=== PATIENT | male | born 1980 | race Caucasian/White ===

== ENCOUNTER 2023-05-26 08:45 | Outpatient (CLI) | payer OTHER ==
--- NOTE | 2023-05-26 09:59 | CT Report ---
PROCEDURE: SINUS SCREENING WO INDICATIONS: FACIAL PAIN TECHNIQUE: Noncontrast 3.0 mm axial images acquired from the frontal sinuses to the mid-sella, with coronal and sagittal reformats. For radiation dose reduction, the following was used: automated exposure control , adjustment of mA and/or kV according to patient size. COMPARISON: None. FINDINGS: Image quality: Excellent. Maxillary Sinuses: No bony remodeling or destruction. There is a mild mucous retention cyst along th e inferior aspect of the right maxillary sinus. Minimal mucosal thickening can be seen involving both inferior maxillary sinuses. Ethmoid Air Cells: No bony remodeling or destruction. Sinuses are clear. Sphenoid Sinuses: No bony remodeling or destruction. Sinuses are clear. Frontal Sinuses: No bony remodeling or destruction. Sinuses are clear. Ostiomeatal Complexes: The ostiomeatal complexes are patent, yet they are constitutionally narrowed, with bilateral Tank cells. Miscellaneous: Visualized intra-orbital contents are normal. No joseph bullosa. There is mild lef tward nasal septal deviation, with a leftward directed bony nasal septal spur. IMPRESSION: Mild focal maxillary sinus disease. The ostiomeatal complexes are patent, yet they are constitutionally narrowed, with bilateral Tank c ells. Mild leftward nasal septal deviation, with a leftward directed bony septal spur. Reviewed by: Jaret Sheldon MD on 05/26/2023 8:58 AM [facility] Approved by: Jaret Sheldon MD on 05/26/2023 8:58 AM [facility] Station ID: [id number]
== END 2023-05-26 08:46 | disposition home or self-care (01) ==
LOC: DI 08:45
PROVIDERS: ATTEND Otolaryngology
DX: J32.4 Chronic pansinusitis (principal); R20.2 Paresthesia of skin; J34.2 Deviated nasal septum; J34.89 Other specified disorders of nose and nasal sinuses